=== PATIENT | female | born 1960 | race Caucasian/White ===

== ENCOUNTER → 2020-07-03 12:40 | Outpatient (CLI) | payer OTHER, SELFPAY | PROVIDERS: PCP Family Medicine; Visit Provider Family Medicine | DX: Z03.818 Encounter for observation for suspected exposure to other biological agents ruled out (principal) | CPT/HCPCS: U0003 ==

== ENCOUNTER → 2020-08-27 15:48 | Outpatient (CLI) | payer OTHER, SELFPAY | PROVIDERS: PCP Family Medicine; Visit Provider Family Medicine | DX: Z20.828 Contact with and (suspected) exposure to other viral communicable diseases (principal); U07.1 COVID-19; J06.9 Acute upper respiratory infection, unspecified | CPT/HCPCS: U0003 ==

== ENCOUNTER → 2021-09-25 12:34 | Outpatient (CLI) | payer OTHER, SELFPAY | PROVIDERS: PCP Family Medicine; Visit Provider Nurse Practitioner | DX: U07.1 COVID-19 (principal) | CPT/HCPCS: C9803; U0003; U0005 ==

== ENCOUNTER → 2022-01-08 08:50 | Outpatient (CLI) | payer OTHER, SELFPAY ==
--- NOTE | 2022-01-08 08:55 | XR_ITS ---
FINAL REPORT TECHNIQUE: Bone densitometry calculations of the lumbar spine and left hip were obtained. CLINICAL HISTORY: .post menopausal FINDINGS: Using L1-4, the bone mineral density of the spine is 1.463 g/cm2, corresponding to T-score of 3.8. Using the left hip, the bone mineral density of the femoral neck is 0.962 g/cm2, corresponding to a T-score of 0.2. Using the right hip, the bone mineral density of the femoral neck is 0.802 g/cm2, corresponding to a T-score of -0.4 NOTE: T-score: Standard deviation compared with peak bone mass of young adult mean. *Following the recommendations of the International Society of Bone densitometry, classification of hip BMD is based on the lower of two T-scores; total hip or femoral neck. IMPRESSION: Normal bone mineral density of the lumbar spine and hip. FRAX data was not recorded because all scores are above -1.0 Reviewed, Interpreted and Dictated by Kale Carrillo MD Transcribed by Karyn Elkins Authenticated by Kale Carrillo MD on 01/08/2022 12:01:58 PM [facility]
== END ==
PROVIDERS: PCP Family Medicine; Visit Provider Family Medicine
DX: Z13.820 Encounter for screening for osteoporosis (principal); Z78.0 Asymptomatic menopausal state
CPT/HCPCS: 77080

== ENCOUNTER 2024-10-03 10:01 | Outpatient (CLI) | payer MEDICARE, SELFPAY ==
--- NOTE | 2024-10-03 10:24 | XR_ITS ---
FINAL REPORT CLINICAL HISTORY: HIP PAIN..no trauma FINDINGS: Right hip Three views were obtained. There is no fracture or dislocation. There are moderate hypertrophic changes of osteoarthritis of the sacroiliac joints. No soft tissue abnormality is identified. IMPRESSION: Moderate changes of osteoarthritis. Reviewed, Interpreted and Dictated by Kale Carrillo MD Transcribed by Karyn Elkins Authenticated and . [facility]
== END 2024-10-03 23:59 | disposition home or self-care (01) ==
PROVIDERS: PCP Family Medicine; Visit Provider Family Medicine
DX: M25.511 Pain in right shoulder (principal)
CPT/HCPCS: 73502